=== PATIENT | female | born 1940 | race Caucasian/White ===

== ENCOUNTER 2017-06-09 09:46 | Inpatient (IN) ==
[2017-06-09] MEDS ORDERED: KETOROLAC 30 MG/1 ML VIAL IV STA (10:54)
[2017-06-09] MEDS ORDERED: SODIUM CHLORIDE 0.9% 500 ML IV STA (10:54)
[2017-06-09] MEDS ORDERED: PHENAZOPYRIDINE 95 MG TABLET PO STA (10:54)
[2017-06-09] MEDS ORDERED: AMPICILLIN/SULBACTAM 3,000 MG in SODIUM CHLORIDE 0.9% 100 ML IV STA (10:54)
[2017-06-09] MEDS ORDERED: methylPREDNISolone SOD SUC 125 MG/2 ML VIAL IV STA (10:54)
[2017-06-09] MEDS ORDERED: DIPH/TET/ACEL PERT BOOSTER VACCINE 0.5 ML VIAL IM ONE (10:59)
[2017-06-09 11:52] LABS: Basophils # 0.1 10*3/uL (0.0-0.2); Basophils % 0.3 % (0.0-0.8); Eosinophils % 0.2 % (0.00-10.9); Hematocrit 37.6 VOL% (35.7-47.0); Hemoglobin 12.5 GM/DL (12.0-16.0); Immature Granulocytes % 0.5 %; Immature Granulocytes Absolute 0.09 #; Lymphocytes # 1.4 10*3/uL (1.4-4.0); Lymphocytes % 8.1 % (21.3-54.2); Mean Corpuscular HGB Conc 33.2 GM/DL (32-36); Mean Corpuscular Hemoglobin 29 PG (27-34); Mean Corpuscular Volume 86.2 FL (87-102); Mean Platelet Volume 11.1 FL (9.6-12.0); Monocytes # 1.1 10*3/uL (0.11-0.8); Monocytes % 6.5 % (1.7-12.7); Neutrophils # 14.8 10*3/uL (1.4-7.4); Neutrophils % 84.4 % (38.7-73.9); Platelet Count 194 T/CUMM (130-400); Red Blood Count 4.36 MC/CUMM (3.8-5.5); Red Cell Distribution Width 15.6 % (9.3-17.3); White Blood Count 17.5 T/CUMM (4-12)
[2017-06-09] MEDS ORDERED: KETOROLAC 30 MG/1 ML VIAL ONE (11:57)
[2017-06-09] MEDS ORDERED: AMPICILLIN/SULBACTAM 3,000 MG VIAL ONE (11:57)
[2017-06-09] MEDS ORDERED: PHENAZOPYRIDINE 95 MG TABLET ONE (11:57)
[2017-06-09] MEDS ORDERED: methylPREDNISolone SOD SUC 125 MG/2 ML VIAL ONE (11:57)
[2017-06-09 12:08] LABS: PT Patient Result 10.7 SECS
[2017-06-09 12:31] LABS: Alanine Aminotransferase < 6 U/L (13-56); Albumin 3.1 G/DL (3.4-5.0); Alkaline Phosphatase 97 U/L (45-117); Aspartate Amino Transferase 13 U/L (0-37); Blood Urea Nitrogen 19 MG/DL (7-18); Calcium 8.4 MG/DL (8.5-10.1); Glucose 81 MG/DL (74-106); Osmolality,Calculated 277.5 MOS/KG (273-304); Potassium 3.6 MMOL/L (3.5-5.1); Sodium 139 MMOL/L (136-145); Total Protein 6.6 G/DL (6.4-8.3)
[2017-06-09 14:11] LABS: Apearance,Urine Slightly Hazy (Clear); Bacteria,Urine Many /HPF (Few); Blood, Urine Negative (Negative); Glucose,Urine (UA) Negative (Negative); Ketones,Urine 5 mg/dL (Negative); Mucus,Urine Occasional /LPF (Occasional); Nitrite,Urine Positive (Negative); Protein,Urine 30 MG/DL; RBC,Urine 10 /HPF (0-4); Squamous Epithelial Cell,Urine Occasional /HPF (0-10); Urine Color Amber (Yellow); WBC,Urine 67 /HPF (0-6)
[2017-06-09 14:12] LABS: Bilirubin,Urine Small mg/dL (Negative)
[2017-06-09] MEDS ORDERED: ACETAMINOPHEN 325 MG TABLET PO PRN (16:36)
[2017-06-09] MEDS ORDERED: DOCUSATE SODIUM 100 MG CAPSULE PO PRN (16:36)
[2017-06-09] MEDS ORDERED: ONDANSETRON 4 MG/2 ML VIAL IV PRN (16:36)
[2017-06-09] MEDS ORDERED: LOPERAMIDE 2 MG CAPSULE PO PRN (16:36)
[2017-06-09] MEDS ORDERED: CARBIDOPA/LEVODOPA 25-100 MG TABLET PO SCH (16:36)
[2017-06-09] MEDS: SODIUM CHLORIDE 0.9% 1,000 ML IV SCH (17:43)
[2017-06-09] MEDS: PIPERACILLIN/TAZOBACTAM 3,375 MG in SODIUM CHLORIDE 0.9% 100 ML IV SCH (18:32)
[2017-06-09] MEDS: CARBIDOPA/LEVODOPA CR 50-200 MG TABLET PO SCH (20:40)
[2017-06-09] MEDS: CARBIDOPA/LEVODOPA 25-100 MG TABLET PO SCH (20:40)
[2017-06-10] MEDS: PIPERACILLIN/TAZOBACTAM 3,375 MG in SODIUM CHLORIDE 0.9% 100 ML IV SCH ×3 (00:18→20:28)
[2017-06-10 06:17] LABS: Basophils % 0.1 % (0.0-0.8); Hematocrit 33.4 VOL% (35.7-47.0); Immature Granulocytes % 0.5 %; Immature Granulocytes Absolute 0.07 #; Lymphocytes # 1.2 10*3/uL (1.4-4.0); Lymphocytes % 8.5 % (21.3-54.2); Mean Corpuscular HGB Conc 32.9 GM/DL (32-36); Mean Corpuscular Hemoglobin 28 PG (27-34); Mean Corpuscular Volume 86.3 FL (87-102); Mean Platelet Volume 11.7 FL (9.6-12.0); Monocytes # 0.3 10*3/uL (0.11-0.8); Monocytes % 2.2 % (1.7-12.7); Neutrophils # 12.7 10*3/uL (1.4-7.4); Neutrophils % 88.7 % (38.7-73.9); Platelet Count 169 T/CUMM (130-400); Red Blood Count 3.87 MC/CUMM (3.8-5.5); Red Cell Distribution Width 15.6 % (9.3-17.3); White Blood Count 14.3 T/CUMM (4-12)
[2017-06-10 06:44] LABS: Calcium 8.2 MG/DL (8.5-10.1); Osmolality,Calculated 287.1 MOS/KG (273-304); Potassium 3.9 MMOL/L (3.5-5.1); Risk Ratio 2.38; VLDL CHOLESTEROL 10.2 MG/DL
[2017-06-10] MEDS ORDERED: clonazePAM 0.5 MG TABLET PO SCH (09:00)
[2017-06-10] MEDS: CARBIDOPA/LEVODOPA 25-100 MG TABLET PO SCH ×3 (09:06→20:26)
[2017-06-10] MEDS: LOSARTAN 50 MG TABLET PO SCH (09:06)
[2017-06-10] MEDS: DULoxetine 20 MG CAPSULE PO SCH (09:09)
[2017-06-10] MEDS: buPROPion XL 150 MG TABLET PO SCH (09:09)
[2017-06-10] MEDS: PANTOPRAZOLE 40 MG TABLET PO SCH (09:10)
[2017-06-10] MEDS: METOPROLOL SUCCINATE XL 25 MG TABLET PO SCH (09:11)
[2017-06-10] MEDS: hydrALAZINE 25 MG TABLET PO SCH (09:11)
[2017-06-10] MEDS: ASPIRIN EC 81 MG TABLET PO SCH (09:11)
[2017-06-10] MEDS: SODIUM CHLORIDE 0.9% 1,000 ML IV SCH (14:46)
[2017-06-10] MEDS: CARBIDOPA/LEVODOPA CR 50-200 MG TABLET PO SCH (20:26)
[2017-06-11] MEDS: PIPERACILLIN/TAZOBACTAM 3,375 MG in SODIUM CHLORIDE 0.9% 100 ML IV SCH ×2 (00:49→08:31)
[2017-06-11] MEDS: SODIUM CHLORIDE 0.9% 1,000 ML IV SCH ×2 (00:55→08:37)
[2017-06-11] MEDS: clonazePAM 0.5 MG TABLET PO SCH ×2 (04:53→21:44)
[2017-06-11 07:19] LABS: Basophils % 0.3 % (0.0-0.8); Eosinophils # 0.2 10*3/uL (0.0-0.87); Eosinophils % 1.6 % (0.00-10.9); Hemoglobin 10.8 GM/DL (12.0-16.0); Immature Granulocytes % 0.5 %; Immature Granulocytes Absolute 0.06 #; Lymphocytes # 2.6 10*3/uL (1.4-4.0); Lymphocytes % 20.7 % (21.3-54.2); Mean Corpuscular HGB Conc 32.7 GM/DL (32-36); Mean Corpuscular Hemoglobin 28 PG (27-34); Mean Corpuscular Volume 86.6 FL (87-102); Mean Platelet Volume 11.4 FL (9.6-12.0); Monocytes # 0.8 10*3/uL (0.11-0.8); Monocytes % 6.4 % (1.7-12.7); Neutrophils # 8.8 10*3/uL (1.4-7.4); Neutrophils % 70.5 % (38.7-73.9); Platelet Count 173 T/CUMM (130-400); Red Blood Count 3.81 MC/CUMM (3.8-5.5); Red Cell Distribution Width 15.7 % (9.3-17.3); White Blood Count 12.4 T/CUMM (4-12)
[2017-06-11 07:46] LABS: Calcium 8.3 MG/DL (8.5-10.1); Osmolality,Calculated 289.7 MOS/KG (273-304); Potassium 3.8 MMOL/L (3.5-5.1)
[2017-06-11] MEDS: METOPROLOL SUCCINATE XL 25 MG TABLET PO SCH (08:33)
[2017-06-11] MEDS: LOSARTAN 50 MG TABLET PO SCH (08:33)
[2017-06-11] MEDS: ASPIRIN EC 81 MG TABLET PO SCH (08:34)
[2017-06-11] MEDS: PANTOPRAZOLE 40 MG TABLET PO SCH (08:34)
[2017-06-11] MEDS: hydrALAZINE 25 MG TABLET PO SCH (08:34)
[2017-06-11] MEDS: CARBIDOPA/LEVODOPA 25-100 MG TABLET PO SCH ×3 (08:35→21:43)
[2017-06-11] MEDS: buPROPion XL 150 MG TABLET PO SCH (08:36)
[2017-06-11] MEDS: DULoxetine 20 MG CAPSULE PO SCH (08:36)
[2017-06-11] MEDS: AMOXICILLIN/CLAV 875 MG TABLET PO SCH (21:44)
[2017-06-11] MEDS: CARBIDOPA/LEVODOPA CR 50-200 MG TABLET PO SCH (21:44)
[2017-06-12] MEDS: CARBIDOPA/LEVODOPA 25-100 MG TABLET PO SCH ×3 (08:43→20:42)
[2017-06-12] MEDS: DULoxetine 20 MG CAPSULE PO SCH (08:44)
[2017-06-12] MEDS: buPROPion XL 150 MG TABLET PO SCH (08:44)
[2017-06-12] MEDS: ASPIRIN EC 81 MG TABLET PO SCH (08:44)
[2017-06-12] MEDS: LOSARTAN 50 MG TABLET PO SCH (08:45)
[2017-06-12] MEDS: hydrALAZINE 25 MG TABLET PO SCH (08:45)
[2017-06-12] MEDS: AMOXICILLIN/CLAV 875 MG TABLET PO SCH ×2 (08:46→20:42)
[2017-06-12] MEDS: METOPROLOL SUCCINATE XL 25 MG TABLET PO SCH (08:46)
[2017-06-12] MEDS: PANTOPRAZOLE 40 MG TABLET PO SCH (08:46)
[2017-06-12] MEDS ORDERED: TUBERCULIN SKIN TEST 0.1 ML SYRINGE INTRADERM ONE (10:50)
[2017-06-12] MEDS: clonazePAM 0.5 MG TABLET PO SCH (20:42)
[2017-06-12] MEDS: CARBIDOPA/LEVODOPA CR 50-200 MG TABLET PO SCH (20:42)
[2017-06-13] MEDS: CARBIDOPA/LEVODOPA 25-100 MG TABLET PO SCH (08:15)
[2017-06-13] MEDS: ASPIRIN EC 81 MG TABLET PO SCH (08:16)
[2017-06-13] MEDS: hydrALAZINE 25 MG TABLET PO SCH (08:17)
[2017-06-13] MEDS: LOSARTAN 50 MG TABLET PO SCH (08:17)
[2017-06-13] MEDS: METOPROLOL SUCCINATE XL 25 MG TABLET PO SCH (08:17)
[2017-06-13] MEDS: PANTOPRAZOLE 40 MG TABLET PO SCH (08:18)
[2017-06-13] MEDS: DULoxetine 20 MG CAPSULE PO SCH (08:19)
[2017-06-13] MEDS: buPROPion XL 150 MG TABLET PO SCH (08:19)
[2017-06-13] MEDS: AMOXICILLIN/CLAV 875 MG TABLET PO SCH (08:19)
[2017-06-13 11:23] VITALS: BP 161/77
== END 2017-06-13 11:50 | disposition swing bed (61) | DRG 603 ==
LOC: N.EDINP 09:46 → N.ED 09:46 → SUATTDRO 13:53 → N.3E 16:01
PROVIDERS: ADMIT Internal Medicine; ATTEND Internal Medicine Geriatric Medicine

== ENCOUNTER 2019-01-27 12:26 | Inpatient (IN) ==
[2019-01-27] MEDS ORDERED: SODIUM CHLORIDE 0.9% 500 ML IV STA ×2 (13:15→16:18)
[2019-01-27] MEDS ORDERED: ONDANSETRON 4 MG/2 ML VIAL IV STA (13:15)
[2019-01-27 14:06] LABS: Basophils % 0.4 % (0.0-0.8); Eosinophils # 0.1 10*3/uL (0.0-0.87); Eosinophils % 1.8 % (0.00-10.9); Hematocrit 31.4 VOL% (35.7-47.0); Hemoglobin 10.1 GM/DL (12.0-16.0); Immature Granulocytes % 0.3 %; Immature Granulocytes Absolute 0.02 #; Lymphocytes # 1.6 10*3/uL (1.4-4.0); Lymphocytes % 23.2 % (21.3-54.2); Mean Corpuscular HGB Conc 32.2 GM/DL (32-36); Mean Platelet Volume 11.4 FL (9.6-12.0); Monocytes % 11.6 % (1.7-12.7); Neutrophils % 62.7 % (38.7-73.9); Platelet Count 208 T/CUMM (130-400); Red Blood Count 3.45 MC/CUMM (3.8-5.5); Red Cell Distribution Width 16.2 % (9.3-17.3); White Blood Count 6.7 T/CUMM (4-12)
[2019-01-27 14:23] LABS: Apearance,Urine CLOUDY (Clear); Bilirubin,Urine Negative (Negative); Blood, Urine Large mg/dL (Negative); Glucose,Urine (UA) Negative (Negative); Ketones,Urine 20 mg/dL (Negative); Nitrite,Urine Negative (Negative); Protein,Urine 100 MG/DL; RBC,Urine 841 /HPF (0-4); Squamous Epithelial Cell,Urine Occasional /HPF (0-10); Urine Color Amber (Yellow); Urine Specific Gravity 1.018 (1.001-1.035); Urine Urobilinogen < 2.0 EU/DL (0.2-1.0); WBC,Urine 854 /HPF (0-6)
[2019-01-27 14:26] LABS: Alanine Aminotransferase < 6 U/L (13-56); Albumin 2.9 G/DL (3.4-5.0); Alkaline Phosphatase 96 U/L (45-117); Amylase 45 U/L (25-115); Aspartate Amino Transferase 15 U/L (0-37); Blood Urea Nitrogen 13 MG/DL (7-18); Calcium 8.9 MG/DL (8.5-10.1); Glucose 75 MG/DL (74-106); Osmolality,Calculated 277.4 MOS/KG (273-304); Total Protein 6.9 G/DL (6.4-8.3)
[2019-01-27] MEDS ORDERED: cefTRIAXone 1,000 MG in SODIUM CHLORIDE 0.9% 100 ML IV STA (16:18)
[2019-01-27] MEDS ORDERED: hydrALAZINE 20 MG/1 ML VIAL IV STA (17:10)
[2019-01-27] MEDS ORDERED: hydrALAZINE 20 MG/1 ML VIAL ONE (17:10)
[2019-01-27] MEDS: ONDANSETRON 4 MG/2 ML VIAL IV PRN (18:10)
[2019-01-27] MEDS: FAMOTIDINE 20 MG/2 ML VIAL IV SCH (21:24)
[2019-01-27] MEDS: SODIUM CHLORIDE 0.9% 1,000 ML IV SCH (21:24)
[2019-01-27] MEDS: rOPINIRole 1 MG TABLET PO SCH (21:30)
[2019-01-27] MEDS: clonazePAM 0.5 MG TABLET PO PRN (21:31)
[2019-01-27] MEDS: ENOXAPARIN 40 MG/0.4 ML SYRINGE SUBCUT SCH (21:32)
[2019-01-27] MEDS: CARBIDOPA/LEVODOPA CR 50-200 MG TABLET PO SCH (21:32)
[2019-01-28] MEDS: hydrALAZINE 20 MG/1 ML VIAL IV PRN (00:24)
[2019-01-28] MEDS: SODIUM CHLORIDE 0.9% 1,000 ML IV SCH ×2 (03:28→10:33)
[2019-01-28 05:06] LABS: Basophils % 0.3 % (0.0-0.8); Eosinophils # 0.1 10*3/uL (0.0-0.87); Hematocrit 30.6 VOL% (35.7-47.0); Hemoglobin 9.8 GM/DL (12.0-16.0); Immature Granulocytes % 0.3 %; Immature Granulocytes Absolute 0.02 #; Lymphocytes # 1.1 10*3/uL (1.4-4.0); Lymphocytes % 19.8 % (21.3-54.2); Mean Corpuscular Volume 91.1 FL (87-102); Mean Platelet Volume 12.1 FL (9.6-12.0); Monocytes % 11.8 % (1.7-12.7); Neutrophils % 66.8 % (38.7-73.9); Platelet Count 204 T/CUMM (130-400); Red Blood Count 3.36 MC/CUMM (3.8-5.5); Red Cell Distribution Width 16.4 % (9.3-17.3); White Blood Count 5.8 T/CUMM (4-12)
[2019-01-28 05:27] LABS: Alanine Aminotransferase < 6 U/L (13-56); Albumin 2.8 G/DL (3.4-5.0); Alkaline Phosphatase 92 U/L (45-117); Aspartate Amino Transferase 12 U/L (0-37); Blood Urea Nitrogen 12 MG/DL (7-18); Calcium 8.1 MG/DL (8.5-10.1); Glucose 77 MG/DL (74-106); Total Protein 6.6 G/DL (6.4-8.3)
[2019-01-28] MEDS: FAMOTIDINE 20 MG/2 ML VIAL IV SCH ×2 (08:47→20:46)
[2019-01-28] MEDS ORDERED: FUROSEMIDE 40 MG/4 ML VIAL IV ONE (10:25)
[2019-01-28] MEDS: CARBIDOPA/LEVODOPA 25-100 MG TABLET PO SCH ×3 (10:35→16:16)
[2019-01-28] MEDS: ONDANSETRON 4 MG/2 ML VIAL IV PRN ×2 (10:36→16:45)
[2019-01-28] MEDS: rOPINIRole 1 MG TABLET PO SCH ×3 (10:36→20:46)
[2019-01-28] MEDS: DULoxetine 20 MG CAPSULE PO SCH (10:36)
[2019-01-28] MEDS: FUROSEMIDE 20 MG TABLET PO SCH (10:36)
[2019-01-28] MEDS: CARBIDOPA/LEVODOPA CR 50-200 MG TABLET PO SCH (20:46)
[2019-01-28] MEDS: ENOXAPARIN 40 MG/0.4 ML SYRINGE SUBCUT SCH (20:46)
[2019-01-28] MEDS: clonazePAM 0.5 MG TABLET PO PRN (20:46)
[2019-01-28] MEDS: DESITIN 4OZ/NYSTATIN 15 GRAM MIXTURE PASTE TOP SCH (20:47)
[2019-01-29] MEDS: SODIUM CHLORIDE 0.9% 1,000 ML IV SCH ×2 (01:32→14:13)
[2019-01-29 05:42] LABS: Basophils % 0.5 % (0.0-0.8); Eosinophils # 0.1 10*3/uL (0.0-0.87); Eosinophils % 2.5 % (0.00-10.9); Hematocrit 28.5 VOL% (35.7-47.0); Immature Granulocytes % 0.2 %; Immature Granulocytes Absolute 0.01 #; Lymphocytes # 1.5 10*3/uL (1.4-4.0); Lymphocytes % 26.9 % (21.3-54.2); Mean Corpuscular HGB Conc 31.6 GM/DL (32-36); Mean Corpuscular Volume 91.9 FL (87-102); Mean Platelet Volume 11.6 FL (9.6-12.0); Monocytes % 11.1 % (1.7-12.7); Neutrophils % 58.8 % (38.7-73.9); Platelet Count 190 T/CUMM (130-400); White Blood Count 5.7 T/CUMM (4-12)
[2019-01-29 06:14] LABS: Alanine Aminotransferase < 6 U/L (13-56); Albumin 2.8 G/DL (3.4-5.0); Alkaline Phosphatase 89 U/L (45-117); Aspartate Amino Transferase 13 U/L (0-37); Blood Urea Nitrogen 9 MG/DL (7-18); Glucose 72 MG/DL (74-106); Total Protein 6.1 G/DL (6.4-8.3)
[2019-01-29] MEDS ORDERED: BISACODYL 5 MG TABLET PO SCH (07:00)
[2019-01-29] MEDS: CARBIDOPA/LEVODOPA 25-100 MG TABLET PO SCH ×3 (08:33→16:29)
[2019-01-29] MEDS: FUROSEMIDE 20 MG TABLET PO SCH (08:34)
[2019-01-29] MEDS: DULoxetine 20 MG CAPSULE PO SCH (08:34)
[2019-01-29] MEDS: BISACODYL 5 MG TABLET PO SCH ×2 (08:34→16:29)
[2019-01-29] MEDS: PANTOPRAZOLE 40 MG TABLET PO SCH ×2 (08:34→18:09)
[2019-01-29] MEDS: rOPINIRole 1 MG TABLET PO SCH ×3 (08:34→21:54)
[2019-01-29] MEDS: DESITIN 4OZ/NYSTATIN 15 GRAM MIXTURE PASTE TOP SCH ×2 (08:39→21:06)
[2019-01-29] MEDS ORDERED: POTASSIUM CHLORIDE 20 MEQ TABLET PO ONE (09:30)
[2019-01-29] MEDS: ONDANSETRON 4 MG/2 ML VIAL IV PRN ×3 (11:58→21:02)
[2019-01-29] MEDS: METOPROLOL SUCCINATE XL 50 MG TABLET PO SCH (11:58)
[2019-01-29] MEDS ORDERED: POLYETHYLENE GLYCOL POWDER 255 GM BOTTLE PO ONE (18:00)
[2019-01-29] MEDS ORDERED: MAGNESIUM CITRATE 300 ML BOTTLE PO ONE (21:00)
[2019-01-29] MEDS: clonazePAM 0.5 MG TABLET PO PRN (21:54)
[2019-01-29] MEDS: CARBIDOPA/LEVODOPA CR 50-200 MG TABLET PO SCH (21:54)
[2019-01-30] MEDS: BISACODYL 5 MG TABLET PO SCH (00:08)
[2019-01-30] MEDS: ONDANSETRON 4 MG/2 ML VIAL IV PRN ×2 (00:14→11:05)
[2019-01-30] MEDS: hydrALAZINE 20 MG/1 ML VIAL IV PRN (01:10)
[2019-01-30] MEDS: SODIUM CHLORIDE 0.9% 1,000 ML IV SCH ×3 (03:44→21:26)
[2019-01-30 05:51] LABS: Basophils % 0.6 % (0.0-0.8); Eosinophils # 0.1 10*3/uL (0.0-0.87); Eosinophils % 1.7 % (0.00-10.9); Hematocrit 30.3 VOL% (35.7-47.0); Hemoglobin 9.9 GM/DL (12.0-16.0); Immature Granulocytes % 1.2 %; Immature Granulocytes Absolute 0.08 #; Lymphocytes # 1.6 10*3/uL (1.4-4.0); Lymphocytes % 24.1 % (21.3-54.2); Mean Corpuscular HGB Conc 32.7 GM/DL (32-36); Mean Corpuscular Volume 88.9 FL (87-102); Monocytes % 11.2 % (1.7-12.7); Neutrophils % 61.2 % (38.7-73.9); Platelet Count 178 T/CUMM (130-400); Red Blood Count 3.41 MC/CUMM (3.8-5.5); Red Cell Distribution Width 15.9 % (9.3-17.3); White Blood Count 6.6 T/CUMM (4-12)
[2019-01-30 06:14] LABS: Anisocytosis 1+; Platelet Estimate Adequate
[2019-01-30] MEDS: PANTOPRAZOLE 40 MG TABLET PO SCH ×2 (06:15→17:42)
[2019-01-30 06:28] LABS: Alanine Aminotransferase < 6 U/L (13-56); Albumin 2.9 G/DL (3.4-5.0); Alkaline Phosphatase 96 U/L (45-117); Aspartate Amino Transferase 17 U/L (0-37); Blood Urea Nitrogen 6 MG/DL (7-18); Calcium 8.5 MG/DL (8.5-10.1); Glucose 78 MG/DL (74-106); Osmolality,Calculated 282.8 MOS/KG (273-304); Total Protein 6.7 G/DL (6.4-8.3)
[2019-01-30] MEDS ORDERED: LACTATED RINGERS 1,000 ML IV SCH (07:00)
[2019-01-30] MEDS ORDERED: LIDOCAINE 2% 5 ML VIAL ONE (09:30)
[2019-01-30] MEDS ORDERED: PROPOFOL 200 MG/20 ML VIAL IV ONE (09:30)
[2019-01-30] MEDS: rOPINIRole 1 MG TABLET PO SCH ×3 (11:06→21:28)
[2019-01-30] MEDS: DESITIN 4OZ/NYSTATIN 15 GRAM MIXTURE PASTE TOP SCH ×2 (11:06→21:29)
[2019-01-30] MEDS: CARBIDOPA/LEVODOPA 25-100 MG TABLET PO SCH ×3 (11:06→16:32)
[2019-01-30] MEDS: HYOSCYAMINE 0.125 MG TABLET PO SCH ×2 (12:04→16:32)
[2019-01-30] MEDS: METOPROLOL SUCCINATE XL 50 MG TABLET PO SCH (12:04)
[2019-01-30] MEDS: FUROSEMIDE 20 MG TABLET PO SCH (12:04)
[2019-01-30] MEDS: DULoxetine 20 MG CAPSULE PO SCH (12:07)
[2019-01-30] MEDS ORDERED: TUBERCULIN SKIN TEST 0.1 ML SYRINGE INTRADERM ONE (15:50)
[2019-01-30] MEDS: CARBIDOPA/LEVODOPA CR 50-200 MG TABLET PO SCH (21:28)
[2019-01-30] MEDS: clonazePAM 0.5 MG TABLET PO PRN (21:28)
[2019-01-31 00:11] LABS: CDT Result Negative (Negative); CDT Specimen Source STOOL
[2019-01-31] MEDS: HYOSCYAMINE 0.125 MG TABLET PO SCH ×3 (01:50→18:25)
[2019-01-31] MEDS: PANTOPRAZOLE 40 MG TABLET PO SCH ×2 (06:35→18:25)
[2019-01-31] MEDS: SODIUM CHLORIDE 0.9% 1,000 ML IV SCH ×3 (06:37→21:39)
[2019-01-31 07:36] LABS: Basophils % 0.5 % (0.0-0.8); Eosinophils # 0.2 10*3/uL (0.0-0.87); Eosinophils % 2.8 % (0.00-10.9); Hematocrit 28.2 VOL% (35.7-47.0); Hemoglobin 9.3 GM/DL (12.0-16.0); Immature Granulocytes % 0.7 %; Immature Granulocytes Absolute 0.06 #; Lymphocytes # 1.6 10*3/uL (1.4-4.0); Lymphocytes % 19.7 % (21.3-54.2); Mean Platelet Volume 11.9 FL (9.6-12.0); Monocytes % 8.9 % (1.7-12.7); Neutrophils % 67.4 % (38.7-73.9); Platelet Count 186 T/CUMM (130-400); Red Blood Count 3.17 MC/CUMM (3.8-5.5); Red Cell Distribution Width 15.9 % (9.3-17.3); White Blood Count 8.1 T/CUMM (4-12)
[2019-01-31 08:05] LABS: Calcium 8.1 MG/DL (8.5-10.1); Osmolality,Calculated 278.1 MOS/KG (273-304)
[2019-01-31] MEDS ORDERED: MAGNESIUM SULF RIDER 4 GM in PREMIX 1 EACH IV PRN (09:08)
[2019-01-31] MEDS: DESITIN 4OZ/NYSTATIN 15 GRAM MIXTURE PASTE TOP SCH ×2 (09:09→21:42)
[2019-01-31] MEDS: rOPINIRole 1 MG TABLET PO SCH ×3 (09:09→21:39)
[2019-01-31] MEDS: FUROSEMIDE 20 MG TABLET PO SCH (09:09)
[2019-01-31] MEDS: DULoxetine 20 MG CAPSULE PO SCH (09:09)
[2019-01-31] MEDS: POTASSIUM CHLORIDE 20 MEQ TABLET PO PRN ×4 (09:09→18:24)
[2019-01-31] MEDS: CARBIDOPA/LEVODOPA 25-100 MG TABLET PO SCH ×3 (09:09→18:24)
[2019-01-31] MEDS: METOPROLOL SUCCINATE XL 50 MG TABLET PO SCH (09:09)
[2019-01-31] MEDS: MAGNESIUM SULF RIDER 2 GM in PREMIX 1 EACH IV PRN (10:44)
[2019-01-31] MEDS: ONDANSETRON 4 MG/2 ML VIAL IV PRN (12:22)
[2019-01-31] MEDS: FLUCONAZOLE 200 MG TABLET PO SCH (14:52)
[2019-01-31] MEDS: hydrALAZINE 20 MG/1 ML VIAL IV PRN (16:14)
[2019-01-31] MEDS: clonazePAM 0.5 MG TABLET PO PRN (21:39)
[2019-01-31] MEDS: CARBIDOPA/LEVODOPA CR 50-200 MG TABLET PO SCH (21:39)
[2019-01-31] MEDS: ENOXAPARIN 40 MG/0.4 ML SYRINGE SUBCUT SCH (21:46)
[2019-02-01] MEDS: HYOSCYAMINE 0.125 MG TABLET PO SCH ×3 (01:00→17:00)
[2019-02-01 02:01] LABS: Basophils # 0.1 10*3/uL (0.0-0.2); Basophils % 0.5 % (0.0-0.8); Eosinophils # 0.3 10*3/uL (0.0-0.87); Eosinophils % 2.9 % (0.00-10.9); Hematocrit 27.6 VOL% (35.7-47.0); Hemoglobin 9.1 GM/DL (12.0-16.0); Immature Granulocytes % 0.7 %; Immature Granulocytes Absolute 0.07 #; Lymphocytes # 2.3 10*3/uL (1.4-4.0); Lymphocytes % 24.2 % (21.3-54.2); Mean Corpuscular Volume 87.9 FL (87-102); Mean Platelet Volume 11.6 FL (9.6-12.0); Monocytes % 8.4 % (1.7-12.7); Neutrophils % 63.3 % (38.7-73.9); Platelet Count 201 T/CUMM (130-400); Red Blood Count 3.14 MC/CUMM (3.8-5.5); Red Cell Distribution Width 15.8 % (9.3-17.3); White Blood Count 9.6 T/CUMM (4-12)
[2019-02-01 02:15] LABS: Osmolality,Calculated 279.1 MOS/KG (273-304)
[2019-02-01] MEDS: PANTOPRAZOLE 40 MG TABLET PO SCH ×2 (07:16→18:30)
[2019-02-01] MEDS: CARBIDOPA/LEVODOPA 25-100 MG TABLET PO SCH ×3 (09:22→16:58)
[2019-02-01] MEDS: FLUCONAZOLE 200 MG TABLET PO SCH (09:24)
[2019-02-01] MEDS: FUROSEMIDE 20 MG TABLET PO SCH (09:24)
[2019-02-01] MEDS: rOPINIRole 1 MG TABLET PO SCH ×3 (09:24→20:29)
[2019-02-01] MEDS: DESITIN 4OZ/NYSTATIN 15 GRAM MIXTURE PASTE TOP SCH ×2 (09:24→20:36)
[2019-02-01] MEDS: METOPROLOL SUCCINATE XL 50 MG TABLET PO SCH (09:25)
[2019-02-01] MEDS: POTASSIUM CHLORIDE 20 MEQ TABLET PO PRN (09:25)
[2019-02-01] MEDS: MAGNESIUM SULF RIDER 2 GM in PREMIX 1 EACH IV PRN (09:29)
[2019-02-01] MEDS: DULoxetine 20 MG CAPSULE PO SCH (10:27)
[2019-02-01] MEDS ORDERED: hydrALAZINE 10 MG TABLET PO PRN (11:33)
[2019-02-01] MEDS: amLODIPine 5 MG TABLET PO SCH (13:22)
[2019-02-01] MEDS: clonazePAM 0.5 MG TABLET PO PRN (20:30)
[2019-02-01] MEDS: CARBIDOPA/LEVODOPA CR 50-200 MG TABLET PO SCH (20:31)
[2019-02-01] MEDS: ENOXAPARIN 40 MG/0.4 ML SYRINGE SUBCUT SCH (20:31)
[2019-02-02] MEDS: HYOSCYAMINE 0.125 MG TABLET PO SCH ×2 (01:57→09:15)
[2019-02-02] MEDS: PANTOPRAZOLE 40 MG TABLET PO SCH ×2 (05:30→19:00)
[2019-02-02 07:18] LABS: Basophils # 0.1 10*3/uL (0.0-0.2); Basophils % 0.6 % (0.0-0.8); Eosinophils # 0.2 10*3/uL (0.0-0.87); Eosinophils % 2.7 % (0.00-10.9); Hematocrit 27.7 VOL% (35.7-47.0); Hemoglobin 8.9 GM/DL (12.0-16.0); Immature Granulocytes Absolute 0.09 #; Lymphocytes # 1.8 10*3/uL (1.4-4.0); Lymphocytes % 20.7 % (21.3-54.2); Mean Corpuscular HGB Conc 32.1 GM/DL (32-36); Mean Corpuscular Volume 88.5 FL (87-102); Mean Platelet Volume 11.4 FL (9.6-12.0); Monocytes % 7.9 % (1.7-12.7); Neutrophils % 67.1 % (38.7-73.9); Platelet Count 191 T/CUMM (130-400); Red Blood Count 3.13 MC/CUMM (3.8-5.5); Red Cell Distribution Width 15.9 % (9.3-17.3); White Blood Count 8.6 T/CUMM (4-12)
[2019-02-02 07:46] LABS: Calcium 8.4 MG/DL (8.5-10.1); Osmolality,Calculated 275.4 MOS/KG (273-304)
[2019-02-02] MEDS: CARBIDOPA/LEVODOPA 25-100 MG TABLET PO SCH ×3 (09:14→19:00)
[2019-02-02] MEDS: FLUCONAZOLE 200 MG TABLET PO SCH (09:14)
[2019-02-02] MEDS: rOPINIRole 1 MG TABLET PO SCH ×3 (09:14→20:24)
[2019-02-02] MEDS: amLODIPine 5 MG TABLET PO SCH (09:15)
[2019-02-02] MEDS: DULoxetine 20 MG CAPSULE PO SCH (09:15)
[2019-02-02] MEDS: METOPROLOL SUCCINATE XL 50 MG TABLET PO SCH (09:15)
[2019-02-02] MEDS: FUROSEMIDE 20 MG TABLET PO SCH (09:15)
[2019-02-02] MEDS: DESITIN 4OZ/NYSTATIN 15 GRAM MIXTURE PASTE TOP SCH ×2 (09:32→20:36)
[2019-02-02] MEDS ORDERED: ONDANSETRON ODT 4 MG TABLET PO ONE (13:00)
[2019-02-02] MEDS: ONDANSETRON ODT 4 MG TABLET PO PRN (19:02)
[2019-02-02] MEDS: POTASSIUM CHLORIDE INJ 10 MEQ in SODIUM CHLORIDE 0.9% 1,000 ML IV SCH (19:05)
[2019-02-02] MEDS: COLESTIPOL 1 GM TABLET PO SCH (20:22)
[2019-02-02] MEDS: clonazePAM 0.5 MG TABLET PO PRN (20:25)
[2019-02-02] MEDS: ENOXAPARIN 40 MG/0.4 ML SYRINGE SUBCUT SCH (20:26)
[2019-02-02] MEDS: CARBIDOPA/LEVODOPA CR 50-200 MG TABLET PO SCH (22:06)
[2019-02-03 06:01] LABS: Basophils # 0.1 10*3/uL (0.0-0.2); Basophils % 0.6 % (0.0-0.8); Eosinophils # 0.2 10*3/uL (0.0-0.87); Eosinophils % 2.7 % (0.00-10.9); Hematocrit 27.3 VOL% (35.7-47.0); Immature Granulocytes % 0.8 %; Immature Granulocytes Absolute 0.07 #; Lymphocytes # 2.2 10*3/uL (1.4-4.0); Mean Corpuscular Volume 88.3 FL (87-102); Mean Platelet Volume 12.5 FL (9.6-12.0); Monocytes % 8.3 % (1.7-12.7); Neutrophils % 63.6 % (38.7-73.9); Platelet Count 191 T/CUMM (130-400); Red Blood Count 3.09 MC/CUMM (3.8-5.5); Red Cell Distribution Width 15.9 % (9.3-17.3)
[2019-02-03] MEDS: PANTOPRAZOLE 40 MG TABLET PO SCH ×2 (06:19→18:24)
[2019-02-03] MEDS: POTASSIUM CHLORIDE INJ 10 MEQ in SODIUM CHLORIDE 0.9% 1,000 ML IV SCH (06:32)
[2019-02-03 06:39] LABS: Alanine Aminotransferase < 6 U/L (13-56); Albumin 2.6 G/DL (3.4-5.0); Alkaline Phosphatase 91 U/L (45-117); Aspartate Amino Transferase 13 U/L (0-37); Blood Urea Nitrogen 4 MG/DL (7-18); Calcium 8.1 MG/DL (8.5-10.1); Glucose 71 MG/DL (74-106); Osmolality,Calculated 271.5 MOS/KG (273-304); Total Protein 6.2 G/DL (6.4-8.3)
[2019-02-03] MEDS ORDERED: LACTATED RINGERS 1,000 ML IV SCH (07:00)
[2019-02-03] MEDS ORDERED: PROPOFOL 200 MG/20 ML VIAL IV ONE (09:00)
[2019-02-03] MEDS ORDERED: ETOMIDATE 20 MG/10 ML VIAL IV ONE (09:00)
[2019-02-03] MEDS ORDERED: LIDOCAINE 1% 5 ML VIAL ONE (09:00)
[2019-02-03] MEDS: rOPINIRole 1 MG TABLET PO SCH ×3 (09:56→20:31)
[2019-02-03] MEDS: amLODIPine 5 MG TABLET PO SCH (09:57)
[2019-02-03] MEDS: FLUCONAZOLE 200 MG TABLET PO SCH (09:57)
[2019-02-03] MEDS: FUROSEMIDE 20 MG TABLET PO SCH (09:57)
[2019-02-03] MEDS: DESITIN 4OZ/NYSTATIN 15 GRAM MIXTURE PASTE TOP SCH (09:58)
[2019-02-03] MEDS: DULoxetine 20 MG CAPSULE PO SCH (09:58)
[2019-02-03] MEDS: METOPROLOL SUCCINATE XL 50 MG TABLET PO SCH (09:58)
[2019-02-03] MEDS: CARBIDOPA/LEVODOPA 25-100 MG TABLET PO SCH ×3 (09:58→18:24)
[2019-02-03] MEDS: ONDANSETRON ODT 4 MG TABLET PO PRN (10:05)
[2019-02-03] MEDS: COLESTIPOL 1 GM TABLET PO SCH (10:06)
[2019-02-03] MEDS ORDERED: METOCLOPRAMIDE 10 MG/10 ML UDCUP PO SCH (11:30)
[2019-02-03] MEDS: METOCLOPRAMIDE 10 MG/2 ML VIAL IV SCH ×2 (14:03→20:33)
[2019-02-03] MEDS: clonazePAM 0.5 MG TABLET PO PRN (20:29)
[2019-02-03] MEDS: CARBIDOPA/LEVODOPA CR 50-200 MG TABLET PO SCH (20:30)
[2019-02-03] MEDS: ENOXAPARIN 40 MG/0.4 ML SYRINGE SUBCUT SCH (20:31)
[2019-02-04] MEDS: DESITIN 4OZ/NYSTATIN 15 GRAM MIXTURE PASTE TOP SCH ×3 (00:05→22:43)
[2019-02-04] MEDS: COLESTIPOL 1 GM TABLET PO SCH ×3 (00:05→20:56)
[2019-02-04] MEDS: METOCLOPRAMIDE 10 MG/2 ML VIAL IV SCH (02:11)
[2019-02-04] MEDS: POTASSIUM CHLORIDE INJ 10 MEQ in SODIUM CHLORIDE 0.9% 1,000 ML IV SCH ×2 (02:11→15:01)
[2019-02-04] MEDS: SODIUM CHLORIDE 0.9% 1,000 ML IV SCH (02:26)
[2019-02-04 04:44] LABS: Basophils % 0.5 % (0.0-0.8); Eosinophils # 0.1 10*3/uL (0.0-0.87); Eosinophils % 1.5 % (0.00-10.9); Hematocrit 28.6 VOL% (35.7-47.0); Hemoglobin 9.2 GM/DL (12.0-16.0); Immature Granulocytes % 0.3 %; Immature Granulocytes Absolute 0.03 #; Lymphocytes # 1.9 10*3/uL (1.4-4.0); Mean Corpuscular HGB Conc 32.2 GM/DL (32-36); Mean Corpuscular Volume 88.8 FL (87-102); Mean Platelet Volume 12.6 FL (9.6-12.0); Monocytes % 8.5 % (1.7-12.7); Neutrophils % 67.2 % (38.7-73.9); Platelet Count 190 T/CUMM (130-400); Red Blood Count 3.22 MC/CUMM (3.8-5.5); Red Cell Distribution Width 15.9 % (9.3-17.3); White Blood Count 8.8 T/CUMM (4-12)
[2019-02-04 05:24] LABS: Alanine Aminotransferase < 6 U/L (13-56); Albumin 2.6 G/DL (3.4-5.0); Alkaline Phosphatase 96 U/L (45-117); Aspartate Amino Transferase 11 U/L (0-37); Blood Urea Nitrogen 5 MG/DL (7-18); Calcium 8.2 MG/DL (8.5-10.1); Glucose 81 MG/DL (74-106); Osmolality,Calculated 272.5 MOS/KG (273-304); Total Protein 6.4 G/DL (6.4-8.3)
[2019-02-04] MEDS: PANTOPRAZOLE 40 MG TABLET PO SCH ×2 (06:09→18:26)
[2019-02-04] MEDS: METOPROLOL SUCCINATE XL 50 MG TABLET PO SCH (09:58)
[2019-02-04] MEDS: amLODIPine 5 MG TABLET PO SCH (09:58)
[2019-02-04] MEDS: rOPINIRole 1 MG TABLET PO SCH ×3 (09:58→20:36)
[2019-02-04] MEDS: FUROSEMIDE 20 MG TABLET PO SCH (09:58)
[2019-02-04] MEDS: CARBIDOPA/LEVODOPA 25-100 MG TABLET PO SCH ×3 (09:58→18:25)
[2019-02-04] MEDS: DULoxetine 20 MG CAPSULE PO SCH (10:00)
[2019-02-04] MEDS: AZITHROMYCIN INJ 250 MG in SODIUM CHLORIDE 0.9% 250 ML IV SCH (10:01)
[2019-02-04] MEDS: ACETAMINOPHEN 325 MG TABLET PO PRN (18:11)
[2019-02-04] MEDS: CARBIDOPA/LEVODOPA CR 50-200 MG TABLET PO SCH (20:36)
[2019-02-04] MEDS: ENOXAPARIN 40 MG/0.4 ML SYRINGE SUBCUT SCH (20:37)
[2019-02-04] MEDS: clonazePAM 0.5 MG TABLET PO SCH (22:18)
[2019-02-05] MEDS: PANTOPRAZOLE 40 MG TABLET PO SCH ×2 (07:05→17:40)
[2019-02-05 08:17] LABS: Basophils % 0.3 % (0.0-0.8); Eosinophils # 0.2 10*3/uL (0.0-0.87); Eosinophils % 1.7 % (0.00-10.9); Hematocrit 29.1 VOL% (35.7-47.0); Hemoglobin 9.3 GM/DL (12.0-16.0); Immature Granulocytes % 0.5 %; Immature Granulocytes Absolute 0.05 #; Lymphocytes # 1.5 10*3/uL (1.4-4.0); Lymphocytes % 16.5 % (21.3-54.2); Mean Corpuscular Volume 89.5 FL (87-102); Mean Platelet Volume 12.5 FL (9.6-12.0); Platelet Count 189 T/CUMM (130-400); Red Blood Count 3.25 MC/CUMM (3.8-5.5); Red Cell Distribution Width 16.5 % (9.3-17.3); White Blood Count 9.2 T/CUMM (4-12)
[2019-02-05 08:36] LABS: Calcium 8.3 MG/DL (8.5-10.1); Osmolality,Calculated 284.8 MOS/KG (273-304)
[2019-02-05] MEDS ORDERED: COLESTIPOL 1 GM TABLET PO SCH (08:41)
[2019-02-05] MEDS: FUROSEMIDE 20 MG TABLET PO SCH (09:03)
[2019-02-05] MEDS: DULoxetine 20 MG CAPSULE PO SCH (09:03)
[2019-02-05] MEDS: METOPROLOL SUCCINATE XL 50 MG TABLET PO SCH (09:05)
[2019-02-05] MEDS: amLODIPine 5 MG TABLET PO SCH (09:05)
[2019-02-05] MEDS: CARBIDOPA/LEVODOPA 25-100 MG TABLET PO SCH ×3 (09:05→17:39)
[2019-02-05] MEDS: clonazePAM 0.5 MG TABLET PO SCH ×2 (09:05→20:53)
[2019-02-05] MEDS: rOPINIRole 1 MG TABLET PO SCH ×3 (09:05→20:53)
[2019-02-05] MEDS: AZITHROMYCIN INJ 250 MG in SODIUM CHLORIDE 0.9% 250 ML IV SCH (09:14)
[2019-02-05] MEDS: AZITHROMYCIN 250 MG TABLET PO SCH (09:17)
[2019-02-05] MEDS: DESITIN 4OZ/NYSTATIN 15 GRAM MIXTURE PASTE TOP SCH ×2 (09:17→20:53)
[2019-02-05] MEDS: COLESTIPOL 1 GM TABLET PO SCH ×2 (11:10→22:58)
[2019-02-05] MEDS ORDERED: cloNIDine 0.1 MG TABLET PO PRN (14:23)
[2019-02-05] MEDS: ACETAMINOPHEN 325 MG TABLET PO PRN ×2 (15:48→21:31)
[2019-02-05] MEDS: POTASSIUM CHLORIDE INJ 10 MEQ in SODIUM CHLORIDE 0.9% 1,000 ML IV SCH ×2 (18:10→23:30)
[2019-02-05] MEDS: CARBIDOPA/LEVODOPA CR 50-200 MG TABLET PO SCH (20:53)
[2019-02-06] MEDS: ACETAMINOPHEN 325 MG TABLET PO PRN (04:29)
[2019-02-06] MEDS: PANTOPRAZOLE 40 MG TABLET PO SCH ×2 (06:38→17:30)
[2019-02-06 08:07] LABS: Basophils % 0.4 % (0.0-0.8); Eosinophils # 0.3 10*3/uL (0.0-0.87); Hematocrit 27.5 VOL% (35.7-47.0); Hemoglobin 8.6 GM/DL (12.0-16.0); Immature Granulocytes % 0.4 %; Immature Granulocytes Absolute 0.04 #; Lymphocytes # 1.9 10*3/uL (1.4-4.0); Lymphocytes % 19.1 % (21.3-54.2); Mean Corpuscular HGB Conc 31.3 GM/DL (32-36); Mean Corpuscular Volume 91.1 FL (87-102); Mean Platelet Volume 12.2 FL (9.6-12.0); Monocytes % 11.4 % (1.7-12.7); Neutrophils % 65.7 % (38.7-73.9); Platelet Count 173 T/CUMM (130-400); Red Blood Count 3.02 MC/CUMM (3.8-5.5); Red Cell Distribution Width 16.6 % (9.3-17.3)
[2019-02-06 08:27] LABS: Alanine Aminotransferase < 6 U/L (13-56); Albumin 2.3 G/DL (3.4-5.0); Alkaline Phosphatase 102 U/L (45-117); Aspartate Amino Transferase 7 U/L (0-37); Blood Urea Nitrogen 8 MG/DL (7-18); Glucose 128 MG/DL (74-106); Osmolality,Calculated 285.8 MOS/KG (273-304); Total Protein 5.6 G/DL (6.4-8.3)
[2019-02-06] MEDS: rOPINIRole 1 MG TABLET PO SCH ×3 (08:42→23:13)
[2019-02-06] MEDS: clonazePAM 0.5 MG TABLET PO SCH ×2 (08:42→23:13)
[2019-02-06] MEDS: FUROSEMIDE 20 MG TABLET PO SCH (08:42)
[2019-02-06] MEDS: METOPROLOL SUCCINATE XL 50 MG TABLET PO SCH (08:43)
[2019-02-06] MEDS: amLODIPine 5 MG TABLET PO SCH (08:43)
[2019-02-06] MEDS: POTASSIUM CHLORIDE 20 MEQ TABLET PO PRN (08:43)
[2019-02-06] MEDS: DULoxetine 20 MG CAPSULE PO SCH (08:43)
[2019-02-06] MEDS: CARBIDOPA/LEVODOPA 25-100 MG TABLET PO SCH ×3 (08:43→17:30)
[2019-02-06] MEDS: AZITHROMYCIN 250 MG TABLET PO SCH (08:43)
[2019-02-06] MEDS: POTASSIUM CHLORIDE INJ 10 MEQ in SODIUM CHLORIDE 0.9% 1,000 ML IV SCH ×2 (08:44→23:28)
[2019-02-06] MEDS: DESITIN 4OZ/NYSTATIN 15 GRAM MIXTURE PASTE TOP SCH ×2 (09:09→23:22)
[2019-02-06] MEDS: COLESTIPOL 1 GM TABLET PO SCH ×2 (11:12→23:21)
[2019-02-06] MEDS: CARBIDOPA/LEVODOPA CR 50-200 MG TABLET PO SCH (23:14)
[2019-02-06] MEDS: ENOXAPARIN 40 MG/0.4 ML SYRINGE SUBCUT SCH (23:20)
[2019-02-07 00:12] LABS: CDT Result Negative (Negative); CDT Specimen Source STOOL
[2019-02-07] MEDS: rOPINIRole 1 MG TABLET PO SCH ×3 (08:22→20:36)
[2019-02-07] MEDS: amLODIPine 5 MG TABLET PO SCH (08:22)
[2019-02-07] MEDS: DULoxetine 20 MG CAPSULE PO SCH (08:22)
[2019-02-07] MEDS: FUROSEMIDE 20 MG TABLET PO SCH (08:22)
[2019-02-07] MEDS: clonazePAM 0.5 MG TABLET PO SCH ×3 (08:22→20:36)
[2019-02-07] MEDS: AZITHROMYCIN 250 MG TABLET PO SCH (08:22)
[2019-02-07] MEDS: CARBIDOPA/LEVODOPA 25-100 MG TABLET PO SCH ×3 (08:22→16:27)
[2019-02-07] MEDS: METOPROLOL SUCCINATE XL 50 MG TABLET PO SCH (08:22)
[2019-02-07] MEDS: DESITIN 4OZ/NYSTATIN 15 GRAM MIXTURE PASTE TOP SCH ×2 (08:23→23:39)
[2019-02-07 08:53] LABS: Basophils # 0.1 10*3/uL (0.0-0.2); Basophils % 0.5 % (0.0-0.8); Eosinophils # 0.4 10*3/uL (0.0-0.87); Eosinophils % 3.2 % (0.00-10.9); Hematocrit 29.9 VOL% (35.7-47.0); Hemoglobin 9.4 GM/DL (12.0-16.0); Immature Granulocytes % 0.7 %; Immature Granulocytes Absolute 0.08 #; Lymphocytes # 2.2 10*3/uL (1.4-4.0); Lymphocytes % 18.1 % (21.3-54.2); Mean Corpuscular HGB Conc 31.4 GM/DL (32-36); Mean Corpuscular Volume 90.3 FL (87-102); Mean Platelet Volume 12.9 FL (9.6-12.0); Monocytes % 9.8 % (1.7-12.7); Neutrophils % 67.7 % (38.7-73.9); Platelet Count 194 T/CUMM (130-400); Red Blood Count 3.31 MC/CUMM (3.8-5.5); Red Cell Distribution Width 16.4 % (9.3-17.3); White Blood Count 12.1 T/CUMM (4-12)
[2019-02-07] MEDS: COLESTIPOL 1 GM TABLET PO SCH ×2 (11:29→23:38)
[2019-02-07] MEDS: PANTOPRAZOLE 40 MG TABLET PO SCH ×2 (14:41→18:20)
[2019-02-07] MEDS: POTASSIUM CHLORIDE INJ 10 MEQ in SODIUM CHLORIDE 0.9% 1,000 ML IV SCH (16:26)
[2019-02-07] MEDS: ACETAMINOPHEN 325 MG TABLET PO PRN (16:27)
[2019-02-07] MEDS: ENOXAPARIN 40 MG/0.4 ML SYRINGE SUBCUT SCH (20:37)
[2019-02-07] MEDS: CARBIDOPA/LEVODOPA CR 50-200 MG TABLET PO SCH (20:40)
[2019-02-08 03:46] LABS: Basophils # 0.1 10*3/uL (0.0-0.2); Basophils % 0.7 % (0.0-0.8); Eosinophils # 0.4 10*3/uL (0.0-0.87); Eosinophils % 3.3 % (0.00-10.9); Hemoglobin 9.3 GM/DL (12.0-16.0); Immature Granulocytes % 0.7 %; Immature Granulocytes Absolute 0.08 #; Lymphocytes # 2.5 10*3/uL (1.4-4.0); Lymphocytes % 20.7 % (21.3-54.2); Mean Corpuscular Volume 90.6 FL (87-102); Mean Platelet Volume 12.7 FL (9.6-12.0); Monocytes % 10.1 % (1.7-12.7); Neutrophils % 64.5 % (38.7-73.9); Platelet Count 208 T/CUMM (130-400); Red Blood Count 3.31 MC/CUMM (3.8-5.5); Red Cell Distribution Width 16.2 % (9.3-17.3); White Blood Count 12.1 T/CUMM (4-12)
[2019-02-08 04:17] LABS: Alanine Aminotransferase < 9 U/L (13-56); Albumin 2.5 G/DL (3.4-5.0); Alkaline Phosphatase 103 U/L (45-117); Aspartate Amino Transferase 8 U/L (0-37); Blood Urea Nitrogen 11 MG/DL (7-18); Calcium 8.3 MG/DL (8.5-10.1); Glucose 118 MG/DL (74-106); Osmolality,Calculated 282.1 MOS/KG (273-304); Total Protein 6.4 G/DL (6.4-8.3)
[2019-02-08] MEDS: PANTOPRAZOLE 40 MG TABLET PO SCH ×2 (06:03→18:15)
[2019-02-08] MEDS: ACETAMINOPHEN 325 MG TABLET PO PRN (09:29)
[2019-02-08] MEDS: amLODIPine 5 MG TABLET PO SCH (09:29)
[2019-02-08] MEDS: AZITHROMYCIN 250 MG TABLET PO SCH (09:30)
[2019-02-08] MEDS: DULoxetine 20 MG CAPSULE PO SCH (09:30)
[2019-02-08] MEDS: rOPINIRole 1 MG TABLET PO SCH ×3 (09:30→20:46)
[2019-02-08] MEDS: FUROSEMIDE 20 MG TABLET PO SCH (09:30)
[2019-02-08] MEDS: METOPROLOL SUCCINATE XL 50 MG TABLET PO SCH (09:30)
[2019-02-08] MEDS: CARBIDOPA/LEVODOPA 25-100 MG TABLET PO SCH ×3 (09:30→17:02)
[2019-02-08] MEDS: POTASSIUM CHLORIDE INJ 10 MEQ in SODIUM CHLORIDE 0.9% 1,000 ML IV SCH (09:30)
[2019-02-08] MEDS: COLESTIPOL 1 GM TABLET PO SCH ×2 (11:51→23:29)
[2019-02-08] MEDS: DESITIN 4OZ/NYSTATIN 15 GRAM MIXTURE PASTE TOP SCH ×2 (11:51→23:29)
[2019-02-08] MEDS: clonazePAM 0.5 MG TABLET PO SCH (20:45)
[2019-02-08] MEDS: CARBIDOPA/LEVODOPA CR 50-200 MG TABLET PO SCH (20:45)
[2019-02-08] MEDS: ENOXAPARIN 40 MG/0.4 ML SYRINGE SUBCUT SCH (20:46)
[2019-02-09] MEDS: POTASSIUM CHLORIDE INJ 10 MEQ in SODIUM CHLORIDE 0.9% 1,000 ML IV SCH ×2 (05:05→17:51)
[2019-02-09 06:10] LABS: Calcium 8.6 MG/DL (8.5-10.1); Osmolality,Calculated 278.4 MOS/KG (273-304); Prealbumin 12.5 MG/DL (20-40)
[2019-02-09] MEDS: PANTOPRAZOLE 40 MG TABLET PO SCH ×2 (07:29→18:10)
[2019-02-09] MEDS: CARBIDOPA/LEVODOPA 25-100 MG TABLET PO SCH ×3 (08:10→18:09)
[2019-02-09] MEDS: FUROSEMIDE 20 MG TABLET PO SCH (08:10)
[2019-02-09] MEDS: AZITHROMYCIN 250 MG TABLET PO SCH (08:10)
[2019-02-09] MEDS: DULoxetine 20 MG CAPSULE PO SCH (08:10)
[2019-02-09] MEDS: METOPROLOL SUCCINATE XL 50 MG TABLET PO SCH (08:10)
[2019-02-09] MEDS: rOPINIRole 1 MG TABLET PO SCH ×3 (08:10→20:50)
[2019-02-09] MEDS: amLODIPine 5 MG TABLET PO SCH (08:10)
[2019-02-09] MEDS: COLESTIPOL 1 GM TABLET PO SCH (11:13)
[2019-02-09] MEDS: DESITIN 4OZ/NYSTATIN 15 GRAM MIXTURE PASTE TOP SCH ×2 (11:14→21:05)
[2019-02-09] MEDS ORDERED: ceFAZolin 1,000 MG in SYRINGE 1 EACH IV ONE (15:04)
[2019-02-09] MEDS ORDERED: PROPOFOL 200 MG/20 ML VIAL IV ONE (16:46)
[2019-02-09] MEDS: ACETAMINOPHEN 325 MG TABLET PO PRN (18:11)
[2019-02-09] MEDS ORDERED: ALUMINUM/MAGNES/SIMETH MAX STR 30 ML UDCUP PO PRN (19:31)
[2019-02-09] MEDS: clonazePAM 0.5 MG TABLET PO SCH (20:50)
[2019-02-09] MEDS: CARBIDOPA/LEVODOPA CR 50-200 MG TABLET PO SCH (20:50)
[2019-02-09] MEDS: ENOXAPARIN 40 MG/0.4 ML SYRINGE SUBCUT SCH (20:50)
[2019-02-10] MEDS: COLESTIPOL 1 GM TABLET PO SCH ×2 (00:54→11:10)
[2019-02-10] MEDS: PANTOPRAZOLE 40 MG TABLET PO SCH (05:36)
[2019-02-10 05:52] LABS: Calcium 8.9 MG/DL (8.5-10.1); Osmolality,Calculated 278.4 MOS/KG (273-304)
[2019-02-10] MEDS: DULoxetine 20 MG CAPSULE PO SCH (08:22)
[2019-02-10] MEDS: FUROSEMIDE 20 MG TABLET PO SCH (08:22)
[2019-02-10] MEDS: AZITHROMYCIN 250 MG TABLET PO SCH (08:23)
[2019-02-10] MEDS: rOPINIRole 1 MG TABLET PO SCH (08:23)
[2019-02-10] MEDS: amLODIPine 5 MG TABLET PO SCH (08:23)
[2019-02-10] MEDS: METOPROLOL SUCCINATE XL 50 MG TABLET PO SCH (08:23)
[2019-02-10] MEDS: CARBIDOPA/LEVODOPA 25-100 MG TABLET PO SCH ×2 (08:27→13:11)
[2019-02-10] MEDS: POTASSIUM CHLORIDE INJ 10 MEQ in SODIUM CHLORIDE 0.9% 1,000 ML IV SCH (08:47)
[2019-02-10] MEDS ORDERED: hydrALAZINE 25 MG TABLET PO SCH (09:00)
[2019-02-10 11:48] VITALS: BP 125/68
== END 2019-02-10 14:50 | disposition swing bed (61) | DRG 392 ==
LOC: EDBD → EDUNIT# → N.ED 12:26 → N.EDINP 17:25 → SUATTDRO 17:26 → N.2E 18:08
PROVIDERS: ADMIT Internal Medicine; ATTEND Internal Medicine
PROC: EGDWPEG (ICD-10-PCS; 2019-02-09 15:50)